=== PATIENT | male | born 1980 | race Two or more races ===

== ENCOUNTER 2016-09-28 11:38 | Emergency (ER) | payer BC ==
[2016-09-28 11:59] VITALS: BP 127/97; PULSE 78; RESP 18; TEMP 98.6; O2SAT 97
--- NOTE | 2016-09-28 12:48 | UCPHY ---
[id number] 12:32 HPI/ROS: CHIEF COMPLAINT: Skin lesion left chin HISTORY OF PRESENT ILLNESS: 36-year-old immunocompetent bearded male with up-to -date tetanus complaining of left chin skin lesion for the past 3 days. He applied warm compresses last evening and the lesion opened up. No fever no chills. No nausea or vomiting. No nuchal rigidity. No intraoral lesions. No odontalgia PHYSICAL EXAM (Prior to examination, patient consented to physical exam, hands were washed and my usual and customary physical exam procedures followed) 1) GENERAL: Well-developed, well-nourished, alert and oriented. Appears to be in no acute distress. 2) HEAD: Normocephalic 3) HEENT: sclera anicteric 4) LUNGS: Breathing comfortably. 5) SKIN: left chin carbuncle noted, draining. Tender. Indurated. Nonfluctuant. No cervical adenopathy. Submandibular and submental spaces are soft. Intraoral examination is unremarkable. No evidence of Ambrose's angina ( Jordan Palafox Alejandra) Constitutional: Initial Vital Signs Temperature (C) 37.0 C 09/28/16 11:53 Heart Rate 78 09/28/16 11:53 Respiratory Rate 18 09/28/16 11:53 Blood Pressure 127/97 H 09/28/16 11:53 O2 Sat (%) 97 09/28/16 11:53 O2 Delivery Mode Room Air Allergies/Adverse Reactions: No Known Allergies Allergy (Unverified 09/28/16 11:53) Home Medications: Medication Instructions Recorded Cephalexin [Keflex] 500 mg PO QID 10 Days 09/28/16 Sulfamethox/Tmp 800/160 mg 1 tab PO BID@1000,2200 10 Days 09/28/16 [Bactrim Ds] ED Images - Head Head Front/Back: 1 - carbuncle MDM/Departure - MDM ED Course/Re-evaluation: Continue warm compresses. No indication for further incision and drainage at this time specially given the esthetic location of this lesion. (Jordan Palafox) The patient was evaluated and managed by the physician case management assistant. I have reviewed this chart and I agree with the findings and plan of care as documented , as indicated by my signature. I am the secondary supervising physician. ( Debi Elena) - Depart Disposition: Home, Routine, Self-Care Clinical Impression: Carbuncle Condition: Good Instructions: Furunculosis and Carbunculosis (ED) Additional Instructions: Return to the Urgent Care go to the ER if you develop new or worsening symptoms , if the area is more swollen, if you develop fever chills or any other symptoms that concern you Prescriptions: Sulfamethox/Tmp 800/160 mg [Bactrim Ds] 1 tab PO BID@1000,2200 10 Days Cephalexin [Keflex] 500 mg PO QID 10 Days Referrals: Bernice Lam DO [Doctor of Osteopathy] - 2-3 days, call for appt. - PQRS PQRS Measurement: n/a (Jordan Palafox)
== END 2016-09-28 12:56 | disposition home or self-care (01) ==
LOC: CED 11:38
DX: L02.02 Furuncle of face (principal); L02.03 Carbuncle of face
CPT/HCPCS: 99214-PO; G0463-PO